=== PATIENT | female | born 1995 | race Caucasian/White ===

== ENCOUNTER 2019-05-21 17:37 | Emergency (ER) | payer OTHER ==
[~2019-05-21] VITALS: Ht 157.5 cm; Wt 63.0 kg
[2019-05-21 17:56] VITALS: Ht 157.5 cm; Wt 63.0 kg
[2019-05-21 21:45] VITALS: BP 123/79
== END 2019-05-21 21:45 | disposition home or self-care (01) ==
LOC: ED 17:37
DX: S43.401A Unspecified sprain of right shoulder joint, initial encounter (principal); R07.89 Other chest pain; F41.9 Anxiety disorder, unspecified; V49.9XXA Car occupant (driver) (passenger) injured in unspecified traffic accident, initial encounter; Y93.89 Activity, other specified; Y92.89 Other specified places as the place of occurrence of the external cause; Y99.8 Other external cause status
CPT/HCPCS: 85378; Q0092

== ENCOUNTER 2019-11-28 23:52 | Emergency (ER) | payer OTHER ==
[~2019-11-28] VITALS: Ht 157.5 cm; Wt 63.5 kg
[2019-11-29 00:04] VITALS: Ht 157.5 cm; Wt 63.5 kg
[2019-11-29 00:38] LABS: BASOPHIL % 0.6 % (0-2); PLATELET COUNT 347 x10^3mcL (130-400)
[2019-11-29 00:41] LABS: RED CELL DISTRIBUTION WIDTH 17.1 % (11.5-14.5)
[2019-11-29 00:47] LABS: CALCIUM 8.6 mg/dL (8.5-10.1); CHLORIDE SERUM 104 mmol/L (98-107); CREATININE SERUM 0.6 mg/dL (0.6-1.0); GFR1 > 60 mL/min; GLUCOSE SERUM 115 mg/dL (74-106); POTASSIUM SERUM 3.3 mmol/L (3.5-5.1); SODIUM SERUM 141 mmol/L (136-145)
[2019-11-29 00:56] LABS: ALBUMIN 3.4 g/dL (3.4-5.0); ALKALINE PHOSPHATASE 196 U/L (46-116); ALT/SGPT 166 U/L (14-59); AST/SGOT 161 U/L (15-37); BILIRUBIN TOTAL 0.41 mg/dL (0.20-1.00); TOTAL PROTEIN, SERUM 7.8 g/dL (6.4-8.2)
[2019-11-29 01:00] LABS: microscopic required? NO
[2019-11-29 01:08] LABS: UA SPECIFIC GRAVITY <=1.005 (1.005-1.035); urine erythrocyte NEGATIVE (NEGATIVE)
[2019-11-29 01:19] LABS: AMPHETAMINE QUAL UR NONE DETECTED (See below)
[2019-11-29 01:47] VITALS: BP 128/78
== END 2019-11-29 01:46 | disposition home or self-care (01) ==
LOC: ED 23:52
PROVIDERS: Specialist
DX: S40.022A Contusion of left upper arm, initial encounter (principal); S00.81XA Abrasion of other part of head, initial encounter; F10.129 Alcohol abuse with intoxication, unspecified; Y09 Assault by unspecified means; Y93.89 Activity, other specified; Y92.89 Other specified places as the place of occurrence of the external cause; Y99.8 Other external cause status
CPT/HCPCS: 36415; G0480